=== PATIENT | male | born 1950 | race Caucasian/White ===

== ENCOUNTER 2025-02-15 06:03 | Emergency (ER) | payer OTHER, SELFPAY ==
[2025-02-15 06:05] VITALS: BP 144/74
[2025-02-15] MEDS: LET TOPICAL ANESTHETIC GEL 3 ML TOPICAL (07:08)
[2025-02-15] MEDS: ADACEL 0.5 ML IM (07:09)
[2025-02-15 07:12] VITALS: BMI 26.3
[2025-02-15 07:17] VITALS: BP 155/77
--- NOTE | 2025-02-15 08:00 | ED.GENMED ---
History of Present Illness
General
Chief Complaint: Skin Surface Trauma
Source: patient and spouse
Exam Limitations: none
Time Seen by Provider: 02/15/25 06:59
Nursing documentation reviewed up to this point in time: agreed with
History of Present Illness
History of Present Illness:
74-year-old male presents for skin laceration. Patient was asleep and rolled out of bed. He caught himself and did not fall to the ground but he struck his chin on the bed stand. He sustained a laceration of the left chin. He denies any loss of
consciousness. He denies any other injuries or complaints. No headache, neck pain, back pain, chest pain, abdominal pain, pain in extremities. He is unsure of his last tetanus shot. He is not on blood thinners.
Review of Systems
Review of Systems
All Other Systems: ROS reviewed and negative except as documented in HPI and ROS
Cardiac: Denies chest pain
ABD/GI: Denies abdominal pain or nausea
: Denies flank pain
Musculoskeletal: Denies joint pain, neck pain or back pain
Skin: Reports other (Laceration)
Neurological: Denies headache
Phy Exam
Physical Exam
Physical Exam:
General: Awake, alert, oriented x3 with a GCS of 15; no acute distress
Head: Normocephalic, patient has approximately 5 cm linear laceration of the left lateral aspect of the mandible/chin
Eyes: Conjunctiva normal, EOMI, pupils equal round reactive to light bilaterally
Throat: Airway intact
Neck: Trachea midline, no midline cervical spine tenderness, good range of motion without pain
Lungs: Breathing comfortably no distress
Heart: Regular rate; no chest wall tenderness
Abd: Soft, non distended, nontender
Neuro: No gross deficits
Skin: Laceration as above
Extremities: Atraumatic
Scores
Heart Failure Risk
Heart Failure Risk Score: Not Applicable
Heart Score for Chest Pain Patients
STEMI patient?: Not applicable
Withdrawal Assessment of Alcohol
Withdrawal Assessment Completed?: Not applicable
Course
Orders/Labs/Results
Orders:
Orders
02/15/25 07:01
Tetanus/Diphth/Acelpertussis [Adacel] 0.5 ml IM .ONCE ONE
02/15/25 07:05
Lidocaine/Epinephrine/Tetracai [Let Topical Anesthetic Gel] 3 ml TOPICAL NOW STA
02/15/25 07:06
Lidocaine/Epinephrine/Tetracai [Let Topical Anesthetic Gel] 3 ml .ROUTE .STK-MED ONE
Vital Signs
Initial and Last Documented VS:
Initial Vital Signs
Temp Pulse Resp BP Pulse Ox
36.6 C 68 20 144/74 98
02/15/25 06:05 02/15/25 06:05 02/15/25 06:05 02/15/25 06:05 02/15/25 06:05
Last Documented Vital Signs
Temp Pulse Resp BP Pulse Ox
36.6 C 68 20 155/77 98
02/15/25 06:05 02/15/25 06:05 02/15/25 06:05 02/15/25 07:17 02/15/25 07:18
Procedures
Laceration Closure
Left Chin:
Status of Wound: clean
Size of Wound in cm: 5
Description of Wound Edges: sharp
Preparation: cleaned with saline
Anesthesia: Topical-LET
Revision/Debridement: routine- no revision
Type of Closure: single layer closure
Skin Closure Material: 6-0 nylon
Number of sutures: 6
MDM/Problems Addressed
Differential Diagnosis Includes:
Laceration
MDM/Problems Addressed:
74-year-old male presents with a chin laceration, rolled out of bed struck his chin on the nightstand. No other traumatic injuries. No headache, not on blood thinners. Updated tetanus here. Laceration repaired. Considered CT head but patient
with no headache, GCS 15. He had no loss of consciousness, no nausea/vomiting. He has a benign physical exam, neuro intact. In my judgment indication for emergent CT head. Stable for discharge, spoke about wound care instructions. All questions
answered.
*Radiology
Radiology exam reviewed: radiology read reviewed
*Pulse Oximetry
SaO2: 98
Patient hypoxic: no (98%)
*Critical Care Note
Total Time (30-74mins, 75-104mins- exclusive of procedures): Not Applicable
Data Reviewed
Source: patient and spouse
Further Testing Considered But Not Given:
Considered CT head
ED Attending Note
-
Portions of this chart may have been created with voice recognition software.� Occasional wrong word or��sound alike� substitutions may have occurred due to the inherent limitations of voice recognition software.
Discharge Plan
Departure
Patient Disposition: Home (Routine Discharge)
Date of Disposition: 02/15/25
Time of Disposition: 07:59
Patient with high blood pressure during this ER visit?: Yes
Discharge Problem:
Facial laceration
Instructions: Laceration Repair With Stitches (DC)
Referrals:
Quan Santiago DO [Family Provider]
Activity Restrictions/Additional Instructions:
You were seen in the emergency room for facial laceration. It was repaired with 6 stitches. You should keep the area dry for the first 24 hours after that you can get it wet but do not scrub the area. If you notice any signs of infection return
to the emergency room immediately to have it assessed. You must have your stitches removed in 5 to 7 days. You can either return here to the ER, follow-up with your primary doctor, or go to urgent care to have the stitches removed. You should
apply antibiotic ointment for the first few days. As the skin begins to heal you should make sure that you are applying sunblock to protect it from the sun to minimize scarring.
Thank you for visiting the Emergency Department at [facility].
1. Please schedule a follow up appointment as directed. Call first thing tomorrow morning to make an appointment.
2. If indicated, please take your medications as instructed and indicated on discharge paperwork.
3. If any of your symptoms do not improve, or persist, or become more severe within 6-12 hours, please return to the emergency department for further care.
4. Please return to the emergency department if you develop a headache, neck pain/stiffness, fever greater than 100.4F, chest pain, shortness of breath, persistent nausea, vomiting, slurred speech, difficulty walking, numbness/tingling, weakness,
signs of infection or any other symptoms that are worrisome to you.
Please call [phone] if you have any questions.
Interventions
Interventions:
*Risk Screen - Suicide Last Done: 02/15/25 06:05
*General Assessment Last Done: 02/15/25 07:18
*Neglect/Abuse Screening Last Done: 02/15/25 06:05
*ED- Fall Risk Assessment Last Done: 02/15/25 07:18
*ED COVID-19 Vaccine History Last Done: 02/15/25 07:18
ED-Skin Assessment Last Done: 02/15/25 07:18
Discharge Date and Time
Print Language: [id number]
[2025-02-15 08:02] VITALS: BP 155/77
== END 2025-02-15 08:09 | disposition home or self-care (01) ==
LOC: EMR 06:03
PROVIDERS: EMERGENCY PHYSICIAN Emergency Medicine; FAMILY PHYSICIAN Student in an Organized Health Care Education/Training Program
DX: S01.81XA Laceration without foreign body of other part of head, initial encounter (principal); W06.XXXA Fall from bed, initial encounter; Z23 Encounter for immunization; R03.0 Elevated blood-pressure reading, without diagnosis of hypertension
CPT/HCPCS: 99282; 90471; 12013; 90715